=== PATIENT | male | born 1950 | race Caucasian/White ===

== ENCOUNTER 2017-10-23 14:45 | Emergency (ER) | payer MEDICARE ==
[2017-10-23] MEDS ORDERED: NACL 0.9% 1000 ML 2,000 ML ONE (14:50)
[2017-10-23] MEDS ORDERED: NACL 0.9% 1000 ML 1,000 ML IV ONE ×3 (14:53→14:59)
--- NOTE | 2017-10-23 15:05 | Emergency Department Report ---
ED General Adult HPI - General Chief complaint: GI Bleed Stated complaint: HYPOTENSION/SWEATING/PALE/ABD PAIN Time Seen by Provider: 10/23/17 14:57 Source: patient Mode of arrival: Ambulatory Limitations: No Limitations - History of Present Illness Initial comments: History of hypertension history of diabetes found down by EMS with a systolic of 70 complaining of diffuse abdominal pain presents pale and diaphoretic complaining of abdominal pain he is awake and alert with good airway 2 IV lines were established in route, sbp 75 on arrival, pt is moaning on stretcher c/o diffuse abd pain, no cp, no other c/o -: Sudden Location: abdomen Quality: aching, sharp, constant Improves with: none Worsens with: none Associated Symptoms: diaphoresis, malaise - Related Data Allergies Allergy/AdvReac Type Severity Reaction Status Date / Time No Known Allergies Allergy Unverified 10/23/17 14:48 ED Review of Systems ROS: Stated complaint: HYPOTENSION/SWEATING/PALE/ABD PAIN Other details as noted in HPI Comment: All other systems reviewed and negative Constitutional: diaphoresis, malaise. denies: fever Respiratory: denies: shortness of breath, SOB with exertion, SOB at rest, stridor Cardiovascular: denies: chest pain, palpitations, dyspnea on exertion, orthopnea , edema, syncope Gastrointestinal: abdominal pain, nausea. denies: vomiting, diarrhea, hematemesis, melena, hematochezia Musculoskeletal: back pain. denies: arthralgia, myalgia Neurological: denies: numbness, paresthesias, confusion Psychiatric: denies: auditory hallucinations, visual hallucinations, homicidal thoughts, suicidal thoughts ED Past Medical Hx - Past Medical History Previous Medical History?: Yes Hx Hypertension: Yes - Surgical History Past Surgical History?: Yes Additional Surgical History: hernia - Social History Smoking Status: Current Every Day Smoker ED Physical Exam - General Limitations: No Limitations General appearance: alert, anxious, in distress, obese, other (diaphoresis with abdominal pain) - Head Head exam: Present: atraumatic, normocephalic - Eye Eye exam: Present: PERRL, EOMI - ENT ENT exam: Present: normal exam, normal orophraynx - Neck Neck exam: Present: normal inspection. Absent: tenderness, meningismus - Respiratory Respiratory exam: Present: other (anxious increased work of breathing) - Cardiovascular Cardiovascular Exam: Present: tachycardia - GI/Abdominal GI/Abdominal exam: Present: distended, tenderness, guarding, rigid, pulsatile mass - Extremities Exam Extremities exam: Present: other (poor pulses in feet with pallor) - Back Exam Back exam: Absent: muscle spasm, paraspinal tenderness, vertebral tenderness - Neurological Exam Neurological exam: Present: alert, oriented X3, CN II-XII intact. Absent: motor sensory deficit - Psychiatric Psychiatric exam: Present: anxious - Skin Skin exam: Present: diaphoretic, pallor ED Course Vital Signs 10/23/17 10/23/17 10/23/17 14:47 15:19 15:20 Pulse Rate 102 H 81 84 Respiratory 20 21 14 Rate Blood Pressure 63/48 131/86 Blood Pressure [Left] O2 Sat by Pulse 99 Oximetry 10/23/17 10/23/17 10/23/17 15:22 15:23 15:25 Pulse Rate 87 84 90 Respiratory 21 16 19 Rate Blood Pressure 100/81 100/81 Blood Pressure 131/86 [Left] O2 Sat by Pulse 100 Oximetry 10/23/17 10/23/17 15:27 15:28 Pulse Rate 85 Respiratory 14 Rate Blood Pressure 100/81 Blood Pressure [Left] O2 Sat by Pulse 99 Oximetry - Reevaluation(s) Reevaluation #1: 10/23/17 15:47 Patient was immediately evaluated on arrival he was placed on a buggy operator. 2 IV lines established and he was fluid resuscitated and sent for emergent CT abdomen with contrast. This did show ruptured AAA. Patient did return to the ED he was still alert oriented 3 and protecting airway ED Medical Decision Making - Lab Data Result diagrams: 10/23/17 15:00 10/23/17 15:00 - EKG Data -: EKG Interpreted by [facility] EKG shows normal: sinus rhythm Rate: normal - EKG Data Interpretation: nonspecific ST-T wave natanael, other (old inferior wall MO LVH PVCs) - Radiology Data Radiology results: report reviewed - Medical Decision Making Patient found to have ruptured AAA he was accepted by Dr. Cordero at [facility] flight was called patient's placed on her percent O2 family consented to transfer to [facility] they're aware of the grave condition of the patient Critical Care Time: Yes Critical care time in (mins) excluding proc time.: 55 Critical care attestation.: If time is entered above; I have spent that time in minutes in the direct care of this critically ill patient, excluding procedure time. ED Disposition Clinical Impression: Ruptured abdominal aortic aneurysm (AAA) Disposition: [id number] ANOTHER TYPE [facility] Is pt being admited?: No Condition: Stable Forms: Accompanied Note Time of Disposition: 16:00
[2017-10-23 15:13] LABS: Basophils # (Auto) 0.1 K/mm3 (0.0-0.1); Basophils % (Auto) 0.5 % (0.0-1.8); Eosinophils # (Auto) 0.1 K/mm3 (0.0-0.4); Eosinophils % (Auto) 0.9 % (0.0-4.3); Hemoglobin 14.8 gm/dl (11.8-15.2); Lymphocytes # (Auto) 2.8 K/mm3 (1.2-5.4); Lymphocytes % (Auto) 22.5 % (13.4-35.0); Mean Corpuscular HGB Conc 34 % (32-34); Mean Corpuscular Hemoglobin 31 pg (28-32); Mean Corpuscular Volume 92 fl (84-94); Monocytes # (Auto) 0.8 K/mm3 (0.0-0.8); Monocytes % (Auto) 6.1 % (0.0-7.3); Platelet Count 209 K/mm3 (140-440); Red Blood Count 4.81 M/mm3 (3.65-5.03); Red Cell Distribution Width 14.1 % (13.2-15.2)
[2017-10-23] MEDS ORDERED: NACL 0.9% 500 ML 500 ML IV ONE ×2 (15:19→17:06)
[2017-10-23] MEDS ORDERED: NACL 0.9% 1000 ML 2,000 ML IV ONE (15:20)
[2017-10-23 15:24] LABS: INR 0.96 (0.87-1.13)
[2017-10-23 15:25] LABS: Albumin 3.4 g/dL (3.9-5); Calcium 8.1 mg/dL (8.4-10.2)
--- NOTE | 2017-10-23 15:31 | Cat Scan Report ---
CT ANGIOGRAM ABDOMEN AND PELVIS History: Pain, evaluate for aortic dissection. Technique: Helical CT following IV contrast. Sagittal and coronal reformatted images. Rotational MIP images. Findings: There is a large amount of intermediate density fluid in the retroperitoneum consistent with blood. There is a large abdominal AAA measuring up to 9.6 x 8.9 cm in axial plane on image 184, series 2. A focal aortic rupture is suspected anteriorly on image 154. No active spurt of contrast is identified at the time of scanning. The celiac axis is patent. The superior border of the aneurysm appears to involve the origin of the SMA and left renal artery but no evidence for stenosis. The right renal artery is widely patent. The JANE is not identified. There is mild aneurysmal dilatation of the right common iliac artery measuring up to 3.4 cm. Focal aneurysmal dilatation of the left internal iliac artery measures 2.7 cm. There is diffuse fatty infiltration of the liver. The biliary system, pancreas, spleen, kidneys and adrenal glands are unremarkable. Diverticulosis of the distal colon is noted. No evidence for bowel obstruction. The appendix is not confidently identified. The bladder and prostate gland are unremarkable. Impression: Aortic rupture with moderate to large retroperitoneal blood. Please see above. These findings were discussed with Dr. Bingham in the emergency department at 1520 hrs. Vascular surgery was also present at the CT machine at the time of scanning.
[2017-10-23] MEDS ORDERED: SUBLIMAZE ONE (15:36)
[2017-10-23] MEDS ORDERED: ZOFRAN IV ONE (15:37)
[2017-10-23] MEDS ORDERED: SUBLIMAZE IV ONE (15:37)
[2017-10-23] MEDS ORDERED: ZOFRAN ONE (15:38)
[2017-10-23] MEDS ORDERED: MAGNESIUM SULFATE ONE (16:20)
[2017-10-23] MEDS ORDERED: ADRENALIN ONE (16:20)
[2017-10-23] MEDS ORDERED: SODIUM BICARBONATE IV ONE (16:20)
[2017-10-23] MEDS ORDERED: INTROPIN DRIP 800 MG/D5W 250 ML IV ONE (16:20)
[2017-10-23 17:34] VITALS: BP 52/32
--- NOTE | 2017-10-24 11:14 | Vascular Lab Report ---
Aortic duplex Reason for exam: Evaluate for dissection of the infrarenal abdominal aorta Comments: The study is technically limited due to the patient body habitus, increased bowel gas and the fact that the patient could not cooperate with the study due to pain. Little if any visualization is seen of the aorta. What little can be seen was not diagnostic. Impression: Nondiagnostic study due to overwhelming technical factors.
== END 2017-10-23 22:00 | disposition other institution (70) ==
LOC: ED 14:45
DX: I71.4 Abdominal aortic aneurysm, without rupture (principal); F17.200 Nicotine dependence, unspecified, uncomplicated
CPT/HCPCS: 36415; 74174; 80053; 83690; 85025; 85610; 85730; 86850; 86900; 86901; 86920; 93005; 93010; 93979; 96361; 96374; 96375; 99285; J0171; J1265; J2405; J3010; J3475; J7030; J7040; P9016; Q9967